=== PATIENT | male | born 1940 | race Caucasian/White ===

== ENCOUNTER → 2016-12-12 | Outpatient (CLI) | payer MEDICARE, BC ==
[2016-12-12 16:19] LABS: Blood Urea Nitrogen 23 mg/dL (9-20); Non-African American GFR(MDRD) >60 (>60 ml/min/1.73 sqM)
--- NOTE | 2016-12-13 10:55 | CT ---
CT CHEST FOR PULMONARY EMBOLISM. EXAMINATION TYPE: CT angio chest DATE OF EXAM: 12/12/2016 4:58 PM INDICATION: Follow-up thoracic aortic aneurysm. CT DLP: 1027.80 mGycm, Automated exposure control for dose reduction was used. CONTRAST: Patient injected with 100 mL of Omnipaque 350. COMPARISON: 10/09/2015 TECHNIQUE: CT of the chest is performed on a spiral scan at 2 mm thick sections. Study is performed with intravenous contrast. 3-D MIP images reconstructed by the technologist are reviewed on the com puter in the coronal and sagittal planes. FINDINGS: No persistent filling defects are evident to suggest an acute pulmonary embolism. No mediastinal or hilar adenopathy enlarged by CT criteria is evident. Some calcified lymphadenopath y is stable from prior. The ascending aorta diameter at the level of the main pulmonary artery is 4.4 cm. The main pulmonary artery diameter at the bifurcation is 2.9 cm. The aorta tapers normally thro ugh its visualized course. Proximal upper abdominal aorta appears unremarkable. There is some streak opacity in the area above the aortic arch suspected be atelectasis. Calcified gr anuloma measuring 0.4 cm is in the anterior right upper lobe. Limited CT section through the upper abdomen are unremarkable. IMPRESSIONS: 1. Ascending thoracic aortic aneurysm currently measuring 4.4 cm which larger than the previous repor vik 4.2 cm. 2. Probable atelectasis or possibly scarring superior to the posterior portion of the aortic arch. Sm all granulomas within the right upper lobe
== END | disposition home or self-care (01) ==
LOC: RADCTMAIN 15:47
PROVIDERS: ATTEND Internal Medicine
DX: I71.2 Thoracic aortic aneurysm, without rupture (principal); J84.10 Pulmonary fibrosis, unspecified
CPT/HCPCS: 82565; 84520; 71275; 36415; Q9967

== ENCOUNTER → 2017-11-19 | Outpatient (CLI) | payer MEDICARE, BC ==
--- NOTE | 2017-11-19 09:43 | US ---
EXAMINATION TYPE: US duplex aorta DATE OF EXAM: 11/19/2017 COMPARISON: CT scan 10/09/2015, 12/12/2016 CLINICAL HISTORY: L81.9 discoloration of skin lower ext, I71.2 thora. Thoracic aortic aneurysm EXAM MEASUREMENTS: Abdominal Aorta: Proximal: 3.3 x 3.7 cm Mid: 2.0 x 2.2 cm Distal: 1.9 x 2.3c m Bifurcation: JOHNNY: 1.5 x 1.3 cm YINA: 1.4 x 1.3 cm AAA at proximal portion, ectatic mid and distal portion with no evidence of AAA Atherosclerotic changes are noted. IMPRESSION: There is a abdominal aortic aneurysm involving the proximal aorta measuring 3.3 x 3.7 cm. This appears increased in size and new from the CT of the chest dated 12/12/2016 which included the u pper abdominal aorta which appear to be normal caliber at that time. Again noted is marked prominence of the celiac axis artery and ectasia of the SMA was also noted on p revious CT scan. Suspect aneurysms involving both of these arteries as well. Would be more accurately measured by CT scan.
== END | disposition home or self-care (01) ==
LOC: RADUSWWP 08:29
PROVIDERS: ATTEND Internal Medicine
DX: I71.4 Abdominal aortic aneurysm, without rupture (principal); I71.2 Thoracic aortic aneurysm, without rupture; L81.9 Disorder of pigmentation, unspecified
CPT/HCPCS: 93923; 93979

== ENCOUNTER → 2017-12-02 | Outpatient (CLI) | payer MEDICARE, BC ==
--- NOTE | 2017-12-02 16:19 | CT ---
EXAMINATION TYPE: CT angio chest DATE OF EXAM: 12/02/2017 COMPARISON: 12/12/2016 HISTORY: Patient has no complaints at time of service. Follow up study for known thoracic aortic ane urysm. CT DLP: 523.7 mGycm CONTRAST: CTA thoracic aorta with 3-D reconstruction is performed and with IV Contrast, patient injected with 8 0 mL of Isovue 300. Contrast CTA of the thoracic aorta was performed from the lung apex through the upper abdomen. 3D re construction imaging obtained at a separate workstation. CT Chest: THORACIC AORTA: Uncomplicated ascending thoracic aortic aneurysm currently measuring 4.5 cm AP dimens ion by 4.4 cm previously. Aortic arch and descending thoracic aorta are ectatic however nonaneurysmal . Mild atheromatous changes seen. There is no evidence for dissection or periaortic collection. LUNGS: The lungs are clear and free of infiltrate or atelectasis. No pulmonary nodule or mass is det ected. No pleural effusion or CT evidence of interstitial lung disease. MEDIASTINUM: No evidence for mediastinal hematoma. The heart is mildly enlarged. No evidence for mediastinal mass or adenopathy. HILAR STRUCTURES: No evidence for mass. No hilar adenopathy is appreciated. OTHER: Simple renal cysts identified.. IMPRESSION- 1. Essentially stable and uncomplicated ascending thoracic aortic aneurysm.
== END | disposition home or self-care (01) ==
LOC: RADCTMAIN 15:02
PROVIDERS: ATTEND Internal Medicine
DX: I71.2 Thoracic aortic aneurysm, without rupture (principal)
CPT/HCPCS: 82565; 84520; 71275; 36415; Q9967

== ENCOUNTER → 2018-11-27 | Outpatient (CLI) | payer MEDICARE, BC ==
--- NOTE | 2018-11-27 12:54 | CT ---
EXAMINATION TYPE: CT angio chest DATE OF EXAM: 11/27/2018 COMPARISON: CTA chest November 2017 and older CTs back through October 20, 2014 HISTORY: Thoracic aortic aneurysm follow up. CT DLP: 1001.7 mGycm. Automated Exposure Control for Dose Reduction was Utilized. CONTRAST: CTA scan of the thorax is performed without and with IV Contrast, patient injected with 100 mL of Iso kendrick 370, pulmonary embolism protocol. Three-D reconstructed images are created and a workstation and reviewed. FINDINGS: LUNGS: Slightly elevated left hemidiaphragm is redemonstrated. Stable 5 mm calcified subpleural nodul e or granuloma right upper lobe anteriorly axial image 18. Stable 6 x 4 mm nodule or nodular density lateral right lower lobe axial image [address] Stable 3 mm subpleural nodule axial i mage 36. Lungs remain clear. No pleural effusion or pneumothorax is noted bilaterally. Tracheobronchi al tree is patent. MEDIASTINUM: There is satisfactory enhancement of the pulmonary artery and its branches, there is no CT evidence for pulmonary embolism. There are no greater than 1 cm noncalcified hilar or mediastina l lymph nodes. Prominent calcified right hilar lymph nodes redemonstrated consistent with product of old granulomatous disease. No cardiomegaly or pericardial effusion is seen. Main pulmonary artery me asures 2.7 cm at bifurcation image 26. Adjacent aorta measures up to 4.4 cm in diameter AP diameter n ot significantly changed from most recent CT. Coronary artery calcification is redemonstrated. OTHER: Cholecystectomy clips are again seen. [id number] multilevel spurring in the spine is red emonstrated. There is persistent moderate to severe disc space narrowing and spurring left L1-L2 leve l. IMPRESSION: Stable 4.4 cm ascending aortic aneurysm.
== END | disposition home or self-care (01) ==
LOC: RADCTMAIN 11:04
PROVIDERS: ATTEND Internal Medicine Cardiovascular Disease
DX: I71.2 Thoracic aortic aneurysm, without rupture (principal)
CPT/HCPCS: 82565; 84520; 71275; 36415; Q9967

== ENCOUNTER → 2019-06-17 | Outpatient (CLI) | payer MEDICARE, BC | LOC: LABWHC1 10:11 | PROVIDERS: ATTEND Urology | DX: C61 Malignant neoplasm of prostate (principal) | CPT/HCPCS: 36415; 84153 ==

== ENCOUNTER → 2019-12-14 | Outpatient (CLI) | payer MEDICARE, BC ==
[2019-12-14 09:16] LABS: ALT 23 U/L (4-49); AST 37 U/L (17-59); Cholesterol 158 mg/dL (<200); Creatine Kinase 117 U/L (55-170); HDL Cholesterol 51 mg/dL (40-60); LDL Cholesterol,Calculated 61 mg/dL (0-99); Triglycerides 231 mg/dL (<150)
--- NOTE | 2019-12-14 10:48 | CT ---
EXAMINATION TYPE: CT angio thor/abd pel aorta DATE OF EXAM: 12/14/2019 COMPARISON: 10/20/2014 HISTORY: Thoracic aortic aneurysm,without rupture CT DLP: 978 mGycm Automated exposure control for dose reduction was used. CONTRAST: Performed without and with IV Contrast, patient injected with 100 mL of Isovue 370. Her graft techniq ue: Axial images 5 mm thick sections. Reconstructed images in the coronal and sagittal planes. Three- D reconstructed images performed separately on the ventricular computer by the technologist are prese nted. 2-D MIP imaging is performed. FINDINGS: The ascending thoracic aorta at the level of main pulmonary artery is 4.7 cm. The main pulmonary sara ry the bifurcation is 2.4 cm. The proximal abdominal aorta at the aortic root measures 4.2 cm. The mid ascending thoracic aorta roddy sures 4.7 cm. The aorta at the arch has a transverse dimension of 2.8 cm. The descending thoracic aor ta tapers to the diaphragm. At the level of the diaphragm the aorta measures 2.9 cm. Celiac axis and superior mesenteric arteries are identified in the proximal abdominal aorta. There is a common origin of the right common carotid artery and the innominate artery. No evidence of dissection within the a dorie within the [id number] is evident. Some calcified lymphadenopathies in the right suprahilar region. Coronary artery calcification is not ed on noncontrast studies. No suspicious enlarged mediastinal or hilar lymph nodes are evident. There is a peripheral calcification within the right upper lobe measuring 0.4 cm. Series [address] sections are obtained through the upper abdomen. Small cortical renal cysts are noted post eriorly. IMPRESSION: ASCENDING THORACIC AORTIC ANEURYSM. AT THE LEVEL THE MAIN PULMONARY ARTERY THIS IS INCREASED FROM 4.2 CM TO 4.7 CM.
== END | disposition home or self-care (01) ==
LOC: RADCTMAIN 08:29
PROVIDERS: ATTEND Internal Medicine Cardiovascular Disease
DX: I71.2 Thoracic aortic aneurysm, without rupture (principal); C61 Malignant neoplasm of prostate; I10 Essential (primary) hypertension; E78.5 Hyperlipidemia, unspecified; I25.10 Atherosclerotic heart disease of native coronary artery without angina pectoris
CPT/HCPCS: 84153; 80061; 82565; 82550; 84450; 84460; 84520; 71275; 36415; 74174; Q9967

== ENCOUNTER → 2020-12-18 | Outpatient (CLI) | payer MEDICARE, BC ==
--- NOTE | 2020-12-18 12:51 | CT ---
EXAMINATION TYPE: CT angio chest DATE OF EXAM: 12/18/2020 12:02 PM COMPARISON: CTA chest November 27, 2018 and older CTs. HISTORY: Thoracic aortic aneurysm CT DLP: 956 mGycm Automated exposure control for dose reduction was used. CONTRAST: CTA scan of the thorax is performed without and with IV Contrast, patient injected with 100 ml mL of Isovue 370, thoracic aneurysmal protocol. 3D reconstructed images are created on an independent work station and reviewed.. FINDINGS: LUNGS: Stable for 5 mm scarlike opacity lateral aspect right lower lobe axial image 42. Stable 6 mm c alcified nodule or granuloma anterior right upper lobe axial image 18. There is no pleural effusion or pneumothorax seen. The tracheobronchial tree is patent. MEDIASTINUM: There is satisfactory enhancement of the pulmonary artery and its branches, there is no CT evidence for pulmonary embolism. There are no greater than 1 cm noncalcified hilar or mediastinal lymph nodes. Prominent but calcified right hilar and pericarinal lymph nodes redemonstrated. No car diomegaly or pericardial effusion is seen. Some pericardial calcification anteriorly again seen. Eddie nary artery calcification is redemonstrated. Bovine type arch. Noncontrast images show no hyperdense material to suggest intramural hematoma. Satisfactory enhancement of the pulmonary arteries. There is ascending aortic aneurysm measuring up to 4.5 cm AP diameter at level of main pulmonary artery image 264 series 10, except for technical differences stable or minimally enlarged from most recent prior study. No extension into the arch or descending aorta. OTHER: Moderate to severe spurring and disc space narrowing left L1-L2 level. Additional mild-to-mod erate multilevel spurring. Cholecystectomy clips are redemonstrated. IMPRESSION: [place] stable 4.5 cm ascending aortic aneurysm.
== END | disposition home or self-care (01) ==
LOC: RADCTMAIN 10:20
PROVIDERS: ATTEND Thoracic Surgery (Cardiothoracic Vascular Surgery)
DX: I71.2 Thoracic aortic aneurysm, without rupture (principal)
CPT/HCPCS: 82565; 84520; 71275; 36415; Q9967